=== PATIENT | male | born 1965 | race African-American/Black ===

== ENCOUNTER 2019-11-17 18:36 | Emergency (ER) | payer OTHER ==
[~2019-11-17] VITALS: Ht 167.6 cm; Wt 119.2 kg
[2019-11-17 18:48] VITALS: BP 139/83
[2019-11-17] MEDS ORDERED: CYCL10TA2 PO (19:07)
[2019-11-17] MEDS ORDERED: TRAM-48 PO (19:07)
[2019-11-17] MEDS ORDERED: PRED-220 PO (19:07)
--- NOTE | 2019-11-17 19:07 | PHYS DOC ---
Past Medical History Past Medical History: No Pertinent History Past Surgical History: No Surgical History Smoking Status: Never Smoker Alcohol Use: None General Adult EDM: Chief Complaint: BACK PAIN OR INJURY HPI: HPI: Patient is a 54 year old male presents with a chief complaint of lower lumbar back pain. Patient states pain is been present for the last 2 days. Pain is located L4-L5 region. Pain does not radiate. Patient's pain is exactly sedated by twisting and turning of the torso as well as bending down. Patient denies any loss of bowel or bladder or saddle anesthesia. Patient does not state a specific injury. Patient states he noticed the pain while at work and has missed work due to pain. States is not taking any medications for pain. Patient ambulated into the ER. Pain reproducible. Review of Systems: Review of Systems: Constitutional: Denies fever or chills. [] Eyes: Denies change in visual acuity. [] HENT: Denies nasal congestion or sore throat. [] Respiratory: Denies cough or shortness of breath. [] Cardiovascular: Denies chest pain or edema. [] GI: Denies abdominal pain, nausea, vomiting, bloody stools or diarrhea. [] : Denies dysuria. [] Musculoskeletal: positive back pain Integument: Denies rash. [] Neurologic: Denies headache, focal weakness or sensory changes. [] Endocrine: Denies polyuria or polydipsia. [] Lymphatic: Denies swollen glands. [] Psychiatric: Denies depression or anxiety. [] Heart Score: Risk Factors: Risk Factors: DM, Current or recent (<one month) smoker, HTN, HLP, family history of CAD, obesity. Risk Scores: Score 0 - 3: 2.5% MACE over next 6 weeks - Discharge Home Score 4 - 6: 20.3% MACE over next 6 weeks - Admit for Clinical Observation Score 7 - 10: 72.7% MACE over next 6 weeks - Early Invasive Strategies Allergies: Allergies: Allergies Coded Allergies Type Severity Reaction Last Updated Verified No Known Drug Allergies 11/17/19 No Physical Exam: PE: Constitutional: Well developed, well nourished, no acute distress, non-toxic appearance. [] HENT: Normocephalic, atraumatic, bilateral external ears normal, oropharynx mois t, no oral exudates, nose normal. [] Eyes: PERRLA, EOMI, conjunctiva normal, no discharge. [] Neck: Normal range of motion, no tenderness, supple, no stridor. [] Cardiovascular:Heart rate regular rhythm, no murmur [] Lungs & Thorax: Bilateral breath sounds clear to auscultation [] Abdomen: Bowel sounds normal, soft, no tenderness, no masses, no pulsatile masses. [] Skin: Warm, dry, no erythema, no rash. [] Back: tenderness l4 l5 region midline and paraspinal right and left, no CVA t enderness. [] Extremities: No tenderness, no cyanosis, no clubbing, ROM intact, no edema. [] Neurologic: Alert and oriented X 3, normal motor function, normal sensory function, no focal deficits noted. [no saddle anesthesia] Psychologic: Affect normal, judgement normal, mood normal. [] Current Patient Data: Vital Signs: Vital Signs Date Time Temp Pulse Resp B/P (MAP) Pulse Ox O2 Delivery O2 Flow Rate FiO2 11/17/19 18:48 98.6 90 20 139/83 (101) 97 Room Air 98.6 EKG: EKG: [] Radiology/Procedures: Radiology/Procedures: [] Course & Med Decision Making: Course & Med Decision Making Pertinent Labs and Imaging studies reviewed. (See chart for details) [] Patient's pain is reproducible twisting and turning and bending. I feel patient pain is musculoskeletal. Will prescribe patient Ultram Flexeril and prednisone. Patient to follow-up with primary care physician. Patient to return to the ER if symptoms persist get worse or any new concerning symptoms arise. Turning symptoms such as loss of bowel or bladder difficulty walking increasing pain. Lou Disclaimer: Lou Disclaimer: This electronic medical record was generated, in whole or in part, using a voice recognition dictation system. Departure Departure Impression: Primary Impression: Back pain Additional Impression: Lumbar back pain Disposition: 01 HOME, SELF-CARE Condition: STABLE Patient Instructions: Back Pain, Adult Scripts Cyclobenzaprine Hcl (CYCLOBENZAPRINE HCL) 10 Mg Tablet 10 MG PO TID for 10 Days, #20 TAB Prov: JUANPABLO TEE I DO 11/17/19 Prednisone (PREDNISONE ) 10 Mg Tablet 50 MG PO DAILY for 5 Days, #25 TAB 0 Refills Prov: JUANPABLO TEE I DO 11/17/19 Tramadol Hcl (ULTRAM) 50 Mg Tablet 50 MG PO Q6HRS PRN for PAIN, #20 TAB 0 Refills Prov: JUANPABLO ETE I DO 11/17/19 Justicifation of Admission Dx: Justifications for Admission: Justification of Admission Dx: JUANPABLO Guo I DO Nov 17, 2019 19:07
== END 2019-11-17 19:28 | disposition home or self-care (01) ==
LOC: ER 18:36
DX: M54.5 Low back pain (principal)
CPT/HCPCS: 99283

== ENCOUNTER 2021-05-12 18:51 | Emergency (ER) | payer BC, OTHER ==
[~2021-05-12] VITALS: Ht 162.6 cm; Wt 121.2 kg
[~2021-05-12 18:51] MED LIST: CYCL10TA19 PO; PRED-220 PO; TRAM-48 PO
--- NOTE | 2021-05-12 19:19 | PHYS DOC ---
Past Medical History Past Medical History: No Pertinent History Past Surgical History: No Surgical History Smoking Status: Never Smoker Alcohol Use: None General Adult HPI: HPI: Patient is a 55 year old male who presents with intermittent episodes of palpitations where he feels like his heart is racing. Episodes last only seconds at a time. He reports that he has had the symptoms off and on for many years. There is no real change today. He often experiences feelings of stress when the symptoms occur. He reports mild and brief dyspnea, only with episodes of palpitations, also only lasting seconds. He denies chest pain. He denies dizziness, diaphoresis, syncope or near syncope. Symptoms are not related to exertion. He denies nausea, vomiting, diarrhea. Denies abdominal pain. Denies fevers or chills. He has chronic hypertension, is willfully noncompliant, he last had his blood pressure medications filled back in either 2015 or 2016. He reports that he only took those medications for few weeks, never went to follow- up with her primary care doctor. He does not routinely check his blood pressure. His blood pressure is elevated here. He is asymptomatic of any complaints at present. He has no palpitations here. He denies SI or HI co mplaints. He denies use of illicit drugs or alcohol. Review of Systems: Review of Systems: Constitutional: Denies fever or chills. [] HENT: Denies nasal congestion or sore throat. [] Respiratory: Denies cough or shortness of breath. [] Cardiovascular: Denies chest pain or edema. Intermittent palpitations. GI: Denies abdominal pain, nausea, vomiting, or diarrhea Musculoskeletal: Denies back pain or joint pain. [] Integument: Denies rash. [] Neurologic: Denies headache, focal weakness or sensory changes. Denies dizziness or syncope. Psychiatric: Admits to feelings of some stress, secondary to recent divorce. Denies SI or HI. Heart Score: C/O Chest Pain: No Risk Factors: Risk Factors: DM, Current or recent (<one month) smoker, HTN, HLP, family history of CAD, obesity. Risk Scores: Score 0 - 3: 2.5% MACE over next 6 weeks - Discharge Home Score 4 - 6: 20.3% MACE over next 6 weeks - Admit for Clinical Observation Score 7 - 10: 72.7% MACE over next 6 weeks - Early Invasive Strategies Allergies: Allergies: Allergies Coded Allergies Type Severity Reaction Last Updated Verified No Known Drug Allergies 11/17/19 No Physical Exam: PE: Constitutional: Well developed, well nourished, no acute distress, non-toxic appearance. [] HENT: Normocephalic, atraumatic, bilateral external ears normal, oropharynx moist, no oral exudates, nose normal. [] Eyes: PERRLA, EOMI, conjunctiva normal, no discharge. [] Neck: Normal range of motion, no tenderness, supple, no stridor. [] Cardiovascular:Heart rate regular rhythm, no murmur [] Lungs & Thorax: Bilateral breath sounds clear to auscultation [] Abdomen: Bowel sounds normal, soft, no tenderness, no masses, no pulsatile masses. [] Skin: Warm, dry, no erythema, no rash. [] Back: No tenderness, no CVA tenderness. [] Extremities: No tenderness, no cyanosis, no clubbing, ROM intact, no edema. [] Neurologic: Alert and oriented X 3, normal motor function, normal sensory function, no focal deficits noted. [] Psychologic: Affect normal, judgement normal, mood normal. [] EKG: EKG: EKG is interpreted at 1902 Rhythm is sinus Rate is 77 bpm [place] is normal No STEMI No acute ischemia Radiology/Procedures: Radiology/Procedures: IMAGING REPORT Signed PATIENT: BETINA ARGUELLO ACCOUNT: [id number] : 1965 LOCATION: ER AGE: 55 SEX: M EXAM STATUS: REG ER ORD. PHYSICIAN: MIGUEL CORCORAN DO REASON: dyspnea, palpitations PROCEDURE: PORTABLE CHEST 1V Single view chest dated 05/12/2021 8:02 PM: COMPARISON: None Clinical Indication: Dyspnea and palpitations.. Findings: Single upright portable exam of the chest was performed. Heart and mediastinal contours within normal limits. There is some patchy/linear opacity at the left retrocardiac region. No consolidation or pleural effusion. No pneumothorax. IMPRESSION: No acute radiographic abnormality. Patchy left basilar opacity, likely scar or atelectasis. Electronically signed by: Berhane Harrison MD (05/12/2021 8:02 PM) [facility] [place] DICTATED and SIGNED BY: BERHANE HARRISON MD DATE: 05/12/[id number] 0 Course & Med Decision Making: Course & Med Decision Making Pertinent Labs and Imaging studies reviewed. (See chart for details) The patient has been asymptomatic here in the ED. Blood pressure still elev ated, though mildly improved. Emergency department work-up is unremarkable for any acute life-threatening process. No return of any palpitations or dyspnea here. I discussed the findings, differential diagnosis and plan of care with him. He will be discharged home with prescription for hydrochlorothiazide with 1 refill. He is given outpatient resources to establish a primary care physician. I explained the importance of medication compliance, the importance of outpatient primary care follow-up. Return precautions are given. He verbalizes understanding. Lou Disclaimer: Lou Disclaimer: This electronic medical record was generated, in whole or in part, using a voice recognition dictation system. Departure Departure Impression: Primary Impression: Palpitations Additional Impression: Chronic hypertension Disposition: HOME / SELF CARE / HOMELESS Condition: STABLE Referrals: NO PCP (PCP) Patient Instructions: Hypertension, Palpitations Additional Instructions: Return to the ER if you have chest pain, severe shortness of breath, coughing up blood, temperature 100.4 or higher, severe dizziness, weakness, if you fall or injure yourself or any other concerns. Please take the prescribed medications as directed for your blood pressure. Please follow-up with your primary care physician as well. Scripts Hydrochlorothiazide (HYDROCHLOROTHIAZIDE TABLET ) 25 Mg Tablet 25 MG PO DAILY for DIURETIC, #30 TAB 1 Refill Prov: MIGUEL CORCORAN DO 05/12/21 MIGUEL CORCORAN DO May 12, 2021 19:19
--- NOTE | 2021-05-12 20:05 | RAD ---
Single view chest dated 05/12/2021 8:02 PM: COMPARISON: None Clinical Indication: Dyspnea and palpitations.. Findings: Single upright portable exam of the chest was performed. Heart and mediastinal contours within normal limits. There is some patchy/linear opacity at the left retrocardiac region. No consolidation or ple ural effusion. No pneumothorax. IMPRESSION: No acute radiographic abnormality. Patchy left basilar opacity, likely scar or atelectasis. Electronically signed by: Berhane Harrison MD (05/12/2021 8:02 PM) [facility]
[2021-05-12 20:46] LABS: BASO % 1 % (0-3); EOS # 0.1 x10^3/uL (0.0-0.7); EOS % 3 % (0-3); HEMATOCRIT 42.3 % (39.0-53.0); HEMOGLOBIN 14.2 g/dL (13.0-17.5); LYMPH # 1.1 x10^3/uL (1.0-4.8); LYMPH % 27 % (24-48); MEAN CORPUSCULAR HEMOGLOBIN 28 pg (25-35); MEAN CORPUSCULAR HGB CONC 34 g/dL (31-37); MEAN CORPUSCULAR VOLUME 84 fL (79-100); MONO # 0.4 x10^3/uL (0.0-1.1); MONO % 9 % (0-9); NEUT # 2.5 x10^3/uL (1.8-7.7); NEUT % 61 % (31-73); PLATELET COUNT 172 x10^3/uL (140-400); RED BLOOD COUNT 5.01 x10^6/uL (4.30-5.70); RED CELL DISTRIBUTION WIDTH 13.6 % (11.5-14.5); WHITE BLOOD COUNT 4.1 x10^3/uL (4.0-11.0)
[2021-05-12 20:59] LABS: CALCIUM 8.3 mg/dL (8.5-10.1); CREATININE 1.1 mg/dL (0.7-1.3); GFR 83.5; MAGNESIUM 1.8 mg/dL (1.8-2.4); POTASSIUM 4.1 mmol/L (3.5-5.1)
[2021-05-12] MEDS ORDERED: HYDR-2145 PO (21:43)
[2021-05-12 22:02] VITALS: BP 177/86
--- NOTE | 2021-05-15 10:09 | EKG ---
[facility] [address] [place] [address] Test Date: 2021-05-12 Test Time: 19:00:38 Pat Name: BETINA ARGUELLO Department: Room: Gender: [employer]airer [employer]: : 1965 Requested By: MIGUEL CORCORAN Order Number: [id number] Reading MD: Measurements Intervals [place] Rate: 77 P: 44 [place]: 184 QRS: 8 QRSD: 94 T: 9 QT: 366 QTc: 416 Interpretive Statements SINUS RHYTHM NORMAL ECG RI6.02 No previous ECG available for comparison
== END 2021-05-12 22:03 | disposition home or self-care (01) ==
LOC: ER 18:51
DX: R00.2 Palpitations (principal); I10 Essential (primary) hypertension
CPT/HCPCS: 36415; 71045; 80048; 83735; 84443; 85025; 93005; 99285-25